=== PATIENT | male | born 1940 | race Caucasian/White ===

== ENCOUNTER 2024-09-13 13:41 | Emergency (ER) | payer MEDICARE, OTHER ==
[2024-09-13] MEDS: Bacitracin Oint 1 GM U/D Packet TOP ONE (14:00)
[2024-09-13] MEDS: Take Home: Cephalexin 500 MG Cap, 6 Cap Pack PO SCH (14:11)
[2024-09-13] MEDS: Bacitracin Oint 1 GM U/D Packet ONE (19:42)
== END 2024-09-13 14:39 | disposition home or self-care (01) ==
LOC: LL.ED 13:41
DX: S51.811A Laceration without foreign body of right forearm, initial encounter (principal); I12.9 Hypertensive chronic kidney disease with stage 1 through stage 4 chronic kidney disease, or unspecified chronic kidney disease; N18.9 Chronic kidney disease, unspecified; E78.5 Hyperlipidemia, unspecified; Z79.899 Other long term (current) drug therapy; Z88.8 Allergy status to other drugs, medicaments and biological substances; W18.30XA Fall on same level, unspecified, initial encounter; Y92.828 Other wilderness area as the place of occurrence of the external cause
CPT/HCPCS: 99283; A9270